=== PATIENT | male | born 1995 | race Caucasian/White ===

== ENCOUNTER → 2021-07-09 16:56 | Outpatient (CLI) | payer SELFPAY | PROVIDERS: Visit Provider Nurse Practitioner Family | DX: Z20.822 Contact with and (suspected) exposure to COVID-19 (principal) | CPT/HCPCS: C9803; U0003; U0005 ==

== ENCOUNTER 2022-03-02 12:44 | Emergency (ER) | payer SELFPAY ==
[2022-03-02 12:44] VITALS: BP 128/80; PULSE 105; RESP 15; TEMP 36.8; O2SAT 96; BMI 35.2
[2022-03-02 12:53] VITALS: BMI 35.2
[2022-03-02 13:01] LABS: Coronavirus 19, PCR Not Detected (NotDetected); Influenza A, PCR Not Detected (NotDetected); Influenza B, PCR Not Detected (NotDetected)
[2022-03-02 13:08] LABS: Strep Scrn Group A (Rapid) Positive (Negative)
--- NOTE | 2022-03-02 13:16 | PC.NURSE ---
RACHAEL DUBOIS at
--- NOTE | 2022-03-02 13:19 | HMH.EDGENADL ---
ED Disposition Clinical Impression: Strep pharyngitis Disposition: Home, Self-Care Condition on Discharge: Good Additional Instructions: At this time was felt you are safe to be discharged home from the emergency department if new or worsening symptoms do not hesitate to return to the emergency department. Specifically if you have difficulty ranging your neck with severe pain, difficulty swallowing, feel like you are struggling to breathe do not hesitate to return to the emergency department. For pain please take Tylenol and ibuprofen. Please take antibiotics as prescribed. Prescriptions: Penicillin V Potassium 500 mg PO BID 10 Days #20 tab Transmission Status: Received by [facility] #[id number] Referrals: Provider,Referral, [Primary Care Provider] - - Critical Care Critical Care Time: No Attestation: On 03/02/22, the high probability of a clinically significant, sudden or life threatening deterioration of the following system(s) required my full and direct attention, intervention and personal management. The time I documented below is in addition to time spent performing reported procedures but includes the following listed in this critical care notation. Medical Decision Making - Mason Inquiry Pt receiving controlled substance: No Vital Signs: 03/02/22 12:44 Temperature 98.3 F Temperature Source Oral Pulse Rate [Right Radial] 105 H Respiratory Rate 15 Blood Pressure [Right Arm] 128/80 Blood Pressure Mean [Right Arm] 96 Blood Pressure Source [Right Arm] Automatic Cuff Blood Pressure Position [Right Arm] Sitting 02 Sat by Pulse Oximetry 96 Oxygen Delivery Method Room Air - Lab Data Lab Results 03/02/22 12:54: Group A Strep Rapid Positive A 03/02/22 12:54: SARS-CoV-2 (PCR) Not detected, Influenza A Untype (PCR) Not detected, Influenza Type B (PCR) Not detected Orders (Tests/Meds): ED MEDICATIONS Discontinued Medications Generic Name Dose Route Start Last Admin Trade Name Freq PRN Reason Stop Dose Admin Acetaminophen 1,000 mg 03/02/22 13:20 03/02/22 13:26 Acetaminophen 500mg Tab PO 03/02/22 13:21 1,000 mg ONCE ONE Administration Ibuprofen 600 mg 03/02/22 13:20 03/02/22 13:26 Ibuprofen 600 Mg Tablet PO 03/02/22 13:21 600 mg ONCE ONE Administration ORDERS Category Date Time Status Chest XR 2 view (NOT portable) [XR chest 2V] Stat Exams 03/02/22 12:54 Ordered Medical Decision Narrative: In summary patient is a 26-year-old male who presents the emergency department for evaluation of sore throat, myalgias, light cough over the last 2 to 3 days. Patient is hemodynamically stable upon arrival, slightly tachycardic heart rate 105. Differential diagnosis includes strep throat, COVID-19, among others. Initial work-up will be conducted with rapid strep screening, COVID swab, chest x-ray. There is no concern for peritonsillar abscess clinically, there is no concern for retropharyngeal abscess as patient is able to swallow, denies dysphagia, is able to range his neck freely. Initial interventions include Tylenol and ibuprofen. Strep swab is positive, for this patient will be prescribed 10-day course of penicillin. Patient refused chest x-ray, concern for pneumonia is low at this time and return precautions were discussed with the patient and he verbalized understanding. Patient is appropriate for discharge at this time. General Adult HPI - General Chief complaint: Upper Respiratory Infection Stated complaint: sore throat, cough, pain in neck muscles Time Seen by Provider: 03/02/22 13:19 Mode of Arrival: Ambulatory Limitations: No Limitations Description of Symptoms (Recalled from ER Triage Doc. by RN): Pt c/o sore throat and neck pain and congestion - History of Present Illness HPI narrative: Patient is a 26-year-old male with no pertinent past medical history presents emergency department for evaluation of sore throat, myalgias, light cough. Onset
--- NOTE | 2022-03-02 13:28 | PC.NURSE ---
rad notified of cxr pt medicated per mar given ice water pt sitting up on side of bed at this time, will continue to monitor
[2022-03-02 14:06] VITALS: BP 132/74; PULSE 78; RESP 16; TEMP 36.6; O2SAT 98
== END 2022-03-02 14:07 | disposition home or self-care (01) ==
PROVIDERS: Emergency Provider Emergency Medicine
DX: J02.0 Streptococcal pharyngitis (principal)
CPT/HCPCS: 87430; 99283; C9803; U0003; U0005

== ENCOUNTER 2022-11-05 18:01 | Emergency (ER) | payer SELFPAY ==
[2022-11-05 18:10] VITALS: BP 151/92; PULSE 91; RESP 18; TEMP 36.9; O2SAT 98; BMI 32.8
--- NOTE | 2022-11-05 19:35 | EXP.UTC ---
Discharge Plan Disposition Patient Disposition: Home, Self-Care Condition: Good Prescriptions Prescriptions: No Action quetiapine 100 MG tablet 100 mg PO DAILY fluoxetine 20 MG capsule 20 mg PO DAILY sulfamethoxazole-trimethoprim 1 EACH tablet 1 each PO BID Qty: 14 0RF cephalexin 500 MG capsule 500 mg PO TID Qty: 30 0RF mupirocin 22 GM ointment 1 applicatio TP BID Qty: 1 0RF penicillin V potassium 500 MG tablet 500 mg PO BID 10 Days Qty: 20 0RF Referrals Follow up/Referrals: Provider,Referral, MD [Primary Care Provider] - See instructions Activity Restrictions/Add. Instructions Additional Instructions/Restrictions: Pt refused Tetanus shot. Clinical Impressions Clinical Impression: Puncture wound of left hand Instructions Patient Instructions: DI for Puncture Wound Discharge ED Provider: Radha Marquez [facility] General Stated complaint: AO 11/05 left hand laceration Mode of Arrival: Ambulatory Source of Information: Patient Limitations: No Limitations Time Seen by Provider: 11/05/22 18:58 Description of Symptoms (Recalled from Triage Doc. by RN): PATIENT C/O PUNCTURE WOUND TO LEFT HAND FROM A BUTTER KNIFE HEENT Symptoms (Recalled from RN notes): No Resp Symptoms (Recalled from RN notes): No Skin Symptoms (Recalled from RN notes): Yes MS Symptoms (Recalled from RN notes): No Functional Status (Recalled from RN notes): WNL History of Present Illness Provider Complaint: Pt states that he was trying to break apart frozen hamburger and the butter knife slipped and went into his hand at the web between his thumb and index finger. Related Data Home Medications Medication Instructions Recorded Confirmed fluoxetine 20 mg capsule 20 mg PO DAILY Anxiety 02/20/19 02/20/19 quetiapine 100 mg tablet 100 mg PO DAILY Anxiety 02/20/19 02/20/19 Previous Rx's Medication Instructions Recorded cephalexin 500 mg capsule 500 mg PO TID #30 caps 02/20/19 mupirocin 2 % topical ointment 1 applicatio TP BID #1 tube 02/20/19 sulfamethoxazole 800 1 each PO BID #14 tabs 02/20/19 mg-trimethoprim 160 mg tablet penicillin V potassium 500 mg 500 mg PO BID 10 days #20 tabs 03/02/22 tablet Allergies Allergy/AdvReac Type Severity Reaction Status Date / Time No Known Allergies Allergy Verified 02/20/19 00:31 Worker's Comp Is this a Worker's Comp case?: No [facility] Disclaimer: The information contained in this section may have been updated after the patient was seen, as this information can be updated by other users. Social History Smoking Status: Current every day smoker tobacco type: cigarettes packs per day: 1 alcohol intake: current current occupational status: employed Travel in the last 8 weeks: None ROS Obtained: Yes All systems reviewed & no additional complaints except as documented Constitutional Constitutional: Reports system reviewed and no additional complaints, except as documented Eyes Eyes: Reports system reviewed and no additional complaints, except as documented ENT Ears, Nose, Mouth, and Throat: Reports system reviewed and no additional complaints, except as documented Cardiovascular Cardiovascular: Reports system reviewed and no additional complaints, except as documented Respiratory Respiratory: Reports system reviewed and no additional complaints, except as documented Gastrointestinal Gastrointestingal: Reports system reviewed and no additional complaints, except as documented Genitourinary Male Genitourinary: Reports system reviewed and no additional complaints, except as documented Musculoskeletal Musculoskeletal: Reports system reviewed and no additional complaints, except as documented Integumentary/Breasts Skin/Breast: Reports system reviewed and no additional complaints, except as documented and Reports wounds Comments: puncture wound on left hand between thumb and index finger Neurologic Neurologic: Reports system reviewed and no a
[2022-11-05 19:36] VITALS: BP 151/92; PULSE 91; RESP 18; TEMP 36.9; O2SAT 98
== END 2022-11-05 19:48 | disposition home or self-care (01) ==
PROVIDERS: Emergency Provider Nurse Practitioner Family
DX: F17.210 Nicotine dependence, cigarettes, uncomplicated (principal); S61.432A Puncture wound without foreign body of left hand, initial encounter; W26.0XXA Contact with knife, initial encounter; Y93.G1 Activity, food preparation and clean up
CPT/HCPCS: 12001; 99204; 99213; 99214; G0463

== ENCOUNTER → 2023-05-29 16:44 | Outpatient (CLI) | payer MEDICARE, OTHER, SELFPAY ==
[2023-05-29 15:12] LABS: Basophils # 0.1 K/mm3 (0-0.2); Basophils % 0.9 % (0.1-2.0); Eosinophils # 0.4 K/mm3 (0.0-0.4); Eosinophils % 2.9 % (0.1-12.0); Hematocrit 46.9 % (42.0-52.0); Hemoglobin 17.3 g/dL (14.1-18.0); Lymphocytes % 24.6 % (10-50); Mean Corpuscular HGB Conc 36.8 g/dL (31.8-35.4); Mean Corpuscular Hemoglobin 30.9 pg (27.0-31.2); Mean Platelet Volume 11.1 fl (7.4-10.4); Monocytes # 0.9 K/mm3 (0.1-1.0); Neutrophils # 7.9 K/mm3 (1.8-7.8); Neutrophils % 64.7 % (37.0-80.0); Platelet Count 199 K/mm3 (142-424); Red Blood Count 5.59 M/mm3 (4.60-6.20); Red Cell Distribution Width 13.7 % (11.5-17.5); White Blood Count 12.2 K/mm3 (4.8-10.8)
[2023-05-29 15:33] LABS: Alanine Aminotransferase 63 U/L (12-78); Albumin Level 4.6 g/dl (3.5-5.0); Albumin/Globulin Ratio 1.5 (1.1-1.8); Alkaline Phosphatase 74 U/L (38-126); Anion Gap 18.3 mEq/L (5-15); Aspartate Amino Transferase 34 U/L (17-59); Bilirubin,Total 0.4 mg/dl (0.2-1.3); Blood Urea Nitrogen 8 mg/dl (9-20); Calcium 9.5 mg/dl (8.4-10.2); Carbon Dioxide 22 mmol/L (22.0-30.0); Chloride 103 mmol/L (98-107); Chol/HDL Ratio 8.2 (1-3.5); Cholesterol 163 mg/dl (140-200); Estimated Glomerular Filt Rate 158 ml/min (>60); GFR (African American) 191 ML/MIN (>60); Glucose 259 mg/dl (74-100); HDL Cholesterol 20 mg/dl (40-60); Potassium 4.3 mmoL/L (3.5-5.1); Sodium 139 mmol/L (136-145); Total Protein,Serum 7.6 g/dl (6.3-8.2)
[2023-05-29 15:35] LABS: Triglycerides 486 mg/dl (30-150)
[2023-05-29 15:44] LABS: Direct LDL Cholesterol 77.11 mg/dL (100-129)
[2023-05-29 16:07] LABS: Thyroid Stimulating Hormone 3.92 uIU/mL (0.465-4.68)
[2023-05-29 16:43] LABS: Creatinine,Urine Random 130 mg/dL (Not Estab.); Microalbumin/Creatinine Ratio 8.1
[2023-05-29 17:14] LABS: Hemoglobin A1C 6.8 % (4.0-6.0)
== END ==
PROVIDERS: PCP Internal Medicine; Visit Provider Internal Medicine
DX: E78.2 Mixed hyperlipidemia (principal); E11.649 Type 2 diabetes mellitus with hypoglycemia without coma; Z79.84 Long term (current) use of oral hypoglycemic drugs; Z79.899 Other long term (current) drug therapy
CPT/HCPCS: 80053; 80061; 82043; 82570; 83036; 84443; 85025